=== PATIENT | male | born 1985 | race American Indian/Alaskan Native ===

== ENCOUNTER 2018-12-23 11:28 | Emergency (ER) | payer SELFPAY ==
[2018-12-23 12:17] VITALS: BP 146/82
--- NOTE | 2018-12-23 12:19 | Event Note ---
ED Screening Note Date of service: 12/23/18 Time: 12:15 ED Screening Note: This is a 33 y.o. M. that presents to the ER with chest pain for 2 days. Reports pain is worse when he cough or move RUE. Patient states he woke up with the pain morning. States his job is physical but he doesn't recall injury during work. This initial assessment/diagnostic orders/clinical plan/treatment(s) is/are subject to change based on patients health status, clinical progression and re- assessment by fellow clinical providers in the ED. Further treatment and workup at subsequent clinical providers discretion. Patient/guardian urged not to elope from the ED as their condition may be serious if not clinically assessed and managed. Initial orders include: CXR
--- NOTE | 2018-12-23 12:45 | XRay Report ---
CHEST 2 VIEWS INDICATION / CLINICAL INFORMATION: chest pain. COMPARISON: None available. FINDINGS: SUPPORT DEVICES: None. HEART / MEDIASTINUM: No significant abnormality. LUNGS / PLEURA: No significant pulmonary or pleural abnormality. No pneumothorax. ADDITIONAL FINDINGS: No significant additional findings. IMPRESSION: 1. No acute findings. Signer Name: Ki Schultz MD Signed: 12/23/2018 12:41 PM Workstation Name: [id number]
[2018-12-23] MEDS ORDERED: ACETAMINOPHEN 325 MG TAB PO ONE (13:35)
[2018-12-23] MEDS ORDERED: IBUPROFEN 600 MG TAB PO ONE (13:35)
[2018-12-23] MEDS ORDERED: SUCRALFATE 1 GM/10 ML ORAL LIQD PO ONE (13:35)
[2018-12-23] MEDS ORDERED: FAMOTIDINE 20 MG TAB PO ONE (13:35)
--- NOTE | 2018-12-23 13:36 | Emergency Department Report ---
ED General Adult HPI - General Chief complaint: Upper Respiratory Infection Stated complaint: CHEST PAIN/COUGHING Time Seen by Provider: 12/23/18 12:14 Source: patient, RN notes reviewed Mode of arrival: Ambulatory Limitations: No Limitations - History of Present Illness Initial comments: This is a 33-year-old gentleman, right-hand dominant, not known to this provider previously. He reports no chronic medical conditions. He denies DVT and pulmonary embolism risk factors. He presents to the emergency room with a few days of right-sided chest pain. The pain is constant and does not radiate anywhere. There is positive cough. There is no vomiting, diaphoresis or exertional shortness of breath. He believes he got worse after he started doing heavy lifting at work. He denies DVT and pulmonary embolism risk factors. There is no recent aspirin consumption. -: Gradual, days(s) Location: chest Consistency: constant Improves with: none Worsens with: none Associated Symptoms: denies other symptoms, cough - Related Data Allergies Allergy/AdvReac Type Severity Reaction Status Date / Time No Known Allergies Allergy Unverified 12/23/18 11:30 ED Review of Systems ROS: Stated complaint: CHEST PAIN/COUGHING Other details as noted in HPI Constitutional: denies: fever Eyes: denies: eye discharge ENT: congestion Respiratory: cough Cardiovascular: chest pain Gastrointestinal: denies: abdominal pain, nausea, vomiting Genitourinary: as per HPI Musculoskeletal: as per HPI Skin: as per HPI Neurological: as per HPI Psychiatric: as per HPI Hematological/Lymphatic: as per HPI ED Past Medical Hx - Past Medical History Previous Medical History?: No - Surgical History Past Surgical History?: No - Social History Smoking Status: Never Smoker Substance Use Type: Alcohol, Marijuana ED Physical Exam - General Limitations: No Limitations General appearance: alert, in no apparent distress - Head Head exam: Present: atraumatic, normocephalic - Eye Eye exam: Present: normal appearance, EOMI. Absent: nystagmus - ENT ENT exam: Present: normal exam, normal orophraynx, mucous membranes moist, normal external ear exam - Neck Neck exam: Present: normal inspection, full ROM. Absent: tenderness, men ingismus - Respiratory Respiratory exam: Present: normal lung sounds bilaterally. Absent: respiratory distress, wheezes, rales, rhonchi, stridor, chest wall tenderness, accessory muscle use, decreased breath sounds, prolonged expiratory - Cardiovascular Cardiovascular Exam: Present: regular rate, normal rhythm, normal heart sounds. Absent: bradycardia, tachycardia, irregular rhythm, systolic murmur, diastolic murmur, rubs, gallop - GI/Abdominal GI/Abdominal exam: Present: soft. Absent: distended, tenderness, guarding, rebound, rigid, pulsatile mass - Rectal Rectal exam: Present: deferred - Extremities Exam Extremities exam: Present: normal inspection, full ROM, other (2+ pulses noted in the bilateral upper, lower extremities. There is no long bone tenderness. Musculoskeletal compartments are soft. The pelvis is stable.). Absent: pedal edema, joint swelling, calf tenderness - Back Exam Back exam: Present: normal inspection, full ROM. Absent: tenderness, CVA tenderness (R), CVA tenderness (L), paraspinal tenderness, vertebral tenderness - Neurological Exam Neurological exam: Present: alert, oriented X3, normal gait, other (there is no facial droop. The tongue is midline. Extraocular movements are intact bilaterally. Patient speaking in full complete sentences. Shoulder shrug is intact bilaterally. Hearing is grossly intact bilaterally. Visual acuity intact to finger counting and color perception at a close distance. 5/5 strength 4 extremities. Sensation intact to light touch in 4 extremities.). Absent: motor sensory deficit - Psychiatric Psychiatric exam: Present: normal affect, normal mood - Skin Skin exam: Present: warm, dry, intact, normal color. Absent: rash ED Course Vital Signs 12/23/18 12:14 Temperature 98.9 F Pulse Rate 72 Respiratory 20 Rate Blood Pressure 146/82 O2 Sat by Pulse 99 Oximetry ED Medical Decision Making - Lab Data Vital Signs 12/23/18 12:14 Temperature 98.9 F Pulse Rate 72 Respiratory 20 Rate Blood Pressure 146/82 O2 Sat by Pulse 99 Oximetry Lab Results 12/23/18 Range/Units 13:40 Total Creatine Kinase 668 H (55-170) units/L Troponin T < 0.010 (0.00-0.029) ng/mL Lipase 30 (13-60) units/L - EKG Data -: EKG Interpreted by Mi EKG shows normal: sinus rhythm, axis, intervals, QRS complexes, ST-T waves - EKG Data When compared to previous EKG there are: previous EKG unavailable Interpretation: normal EKG - Radiology Data Radiology results: pending, report reviewed, image reviewed X-ray the chest is negative for acute disease - Medical Decision Making Differential diagnosis, including not limited to: Costochondritis, GERD, gastritis, pericarditis, pneumonia, hiatal hernia Assessment and plan: 33-year-old gentleman with complaint of a few days of right-sided chest pain. The patient is afebrile with reassuring vital signs. He is not tachycardic, tachypneic or hypoxic, he endorses no pulmonary embolism or DVT risk factors, and is low risk by well's criteria, and he is also perc negative Patient at low risk for major adverse cardiac event as per the heart score. No recent aspirin consumption. Patient resting comfortably in stretcher, 4 hours, without clinical decompensation. He does not appear to have an emergent medical condition at this time. His symptoms were treated. Patient may follow-up with an outpatient primary care doctor. Critical care attestation.: If time is entered above; I have spent that time in minutes in the direct care of this critically ill patient, excluding procedure time. ED Disposition Clinical Impression: Right-sided chest pain Disposition: DC-01 TO HOME OR SELFCARE Is pt being admited?: No Does the pt Need Aspirin: No Condition: Stable Additional Instructions: Drink 4-6 cups of water per day. Avoid consumption of heavy and/or spicy foods. Take the pain medications as needed and directed. Follow-up with a primary care doctor within the next 7-10 days. Return to emergency room right away with new, worsened, different symptoms, or symptoms not present on initial emergency room evaluation. Referrals: PRIMARY CARE [Primary Care Provider] - 3-5 Days [facility] [Provider Group] - 3-5 Days [facility] [Provider Group] - 3-5 Days
== END 2018-12-23 14:49 | disposition home or self-care (01) ==
LOC: ED 11:28
DX: R07.9 Chest pain, unspecified (principal); F12.10 Cannabis abuse, uncomplicated
CPT/HCPCS: 36415; 71046; 82550; 83690; 84484; 93005; 93010

== ENCOUNTER 2019-08-25 13:30 | Emergency (ER) | payer SELFPAY ==
[2019-08-25 13:39] VITALS: BP 127/73
--- NOTE | 2019-08-25 14:26 | Emergency Department Report ---
Chief Complaint: Back Pain/Injury Stated Complaint: BACK PAIN Time Seen by Provider: 08/25/19 14:16 - HPI History of Present Illness: 33-year-old -[place] male patient without significant past medical history presents with complaints of left lower back swelling times today and left lower back pain x 6 days. Patient states his pain started after he was exercising and lifting and he believes he pulled a muscle. Patient states he has been using ibuprofen and topical Biofreeze daily since. He states upon waking this morning, he noticed that his skin appears swollen. He denies any lesions, skin pain, fever/chills/sweats,loss of bladder/bowel control, numbn ess/tingling/weakness in his limbs, or difficulty with ambulation. - Exam Vital Signs: Vital Signs 08/25/19 13:36 Temperature 98.4 F Pulse Rate 100 H Respiratory 18 Rate Blood Pressure 127/73 O2 Sat by Pulse 99 Oximetry MSE screening note: Focused history and physical exam performed. Due to findings the following was ordered: ED Medical Decision Making - Medical Decision Making Patient here with complaints of left lower back pain after heavy lifting 6 days ago. Patient also states that the area began to swell this morning and that is why he presents to the ED today. On exam, skin is slightly swollen and very minimally erythemic without warmth or tenderness. No spinal or paraspinal tenderness noted on exam. No left CVA tenderness or abdominal tenderness noted and patient denies any urinary symptoms. Suspect patient is having skin irrit ation due to overuse of Biofreeze. Patient informed to discontinue Biofreeze and use ibuprofen as needed for the pain with icing and stretching. Patient provided with [facility] information for follow-up. Also recommend patient use Benadryl for the swelling for 1 to 2 days. Vitals are normal and patient is well-appearing and stable for discharge home. Strict return precautions were discussed in great detail with patient who verbalized understanding. ED Disposition for MSE Clinical Impression: Skin irritation due to topical agent Low back strain Qualifiers: Encounter type: initial encounter Qualified Code(s): S39.012A - Strain of muscle, fascia and tendon of lower back, initial encounter Disposition: MED SCREENING EXAM-LEFT Is pt being admited?: No Condition: Stable Instructions: Low Back Strain (ED) Referrals: [facility] [Provider Group] - 3-5 Days ED Physical Exam - General Limitations: No Limitations General appearance: alert, in no apparent distress - Head Head exam: Present: atraumatic, normocephalic - Eye Eye exam: Present: normal appearance. Absent: scleral icterus - ENT ENT exam: Present: mucous membranes moist - Neck Neck exam: Present: normal inspection - Respiratory Respiratory exam: Present: normal lung sounds bilaterally. Absent: respiratory distress - Cardiovascular Cardiovascular Exam: Present: regular rate, normal rhythm. Absent: systolic murmur, diastolic murmur, rubs, gallop - GI/Abdominal GI/Abdominal exam: Present: soft, normal bowel sounds. Absent: distended, tenderness, guarding, rebound, rigid - Back Exam Back exam: Present: full ROM. Absent: CVA tenderness (L), paraspinal tenderness, vertebral tenderness - Neurological Exam Neurological exam: Present: alert, oriented X3, normal gait. Absent: motor sensory deficit - Expanded Neurological Exam Expanded Sensory exam: Upper Extremity Light Touch: Normal, Lower Extremity Light Touch: Normal Motor strength exam: RUE: 5, LUE: 5, RLE: 5, LLE: 5 - Psychiatric Psychiatric exam: Present: normal affect, normal mood - Skin Skin exam: Present: warm, dry, intact, erythema (minimal ertyema noted to left flank area with minimal skin swelling noted; no tenderness to palpation or warmth noted; no skin lesions; ). Absent: rash, petechiae, ecchymosis ED Review of Systems ROS: Stated complaint: BACK PAIN Other details as noted in HPI Constitutional: denies: chills, diaphoresis, fever, malaise, weakness Respiratory: denies: cough, shortness of breath Cardiovascular: denies: chest pain Gastrointestinal: denies: abdominal pain, nausea, vomiting Genitourinary: denies: urgency, dysuria, frequency, hematuria, discharge Musculoskeletal: back pain. denies: joint swelling Skin: change in color. denies: lesions, pruritus Neurological: denies: headache, weakness, numbness, paresthesias
== END 2019-08-25 15:00 | disposition left against medical advice (07) ==
LOC: ED 13:30
DX: M54.89 Other dorsalgia (principal); Z53.21 Procedure and treatment not carried out due to patient leaving prior to being seen by health care provider

== ENCOUNTER 2020-02-04 04:34 | Emergency (ER) | payer SELFPAY ==
[2020-02-04 04:43] VITALS: BP 152/96
[2020-02-04] MEDS ORDERED: methylPREDNISolone Sod Succinate 125 MG/2 ML INJ IM ONE (08:07)
--- NOTE | 2020-02-04 08:07 | Emergency Department Report ---
ED Back Pain/Injury HPI - General Chief Complaint: Pain General Stated Complaint: LF HIP PAIN S/P FALL Time Seen by Provider: 02/04/20 08:03 Source: patient Limitations: No Limitations - History of Present Illness Initial Comments: Patient has had ongoing issues with left-sided sciatica for a number of months, has seen chiropractors without significant improvement, recently had an MRI that confirmed a nerve compression but was otherwise negative. States that he is here hoping to get a steroid shot to help. Denies any fevers, trauma, numbness, weakness, bowel or bladder changes, IV drug use, history of cancer, long-term steroid use or other complaints. Pain worse with movement, better with rest, moderate in nature. Radiates down the left leg. - Related Data Previous Rx's Medication Instructions Recorded Last Taken Type Acetaminophen [Non-Aspirin Extra 500 mg PO Q6HR PRN #30 tablet 12/23/18 Unknown Rx Strength] Famotidine [Pepcid] 20 mg PO BID #10 tablet 12/23/18 Unknown Rx Ibuprofen [Motrin] 600 mg PO Q8H PRN #30 tablet 12/23/18 Unknown Rx predniSONE [Deltasone] 40 mg PO QDAY #10 tab 02/04/20 Unknown Rx Allergies Allergy/AdvReac Type Severity Reaction Status Date / Time No Known Allergies Allergy Unverified 12/23/18 11:30 ED Review of Systems ROS: Stated complaint: LF HIP PAIN S/P FALL Other details as noted in HPI Comment: All other systems reviewed and negative Musculoskeletal: as per HPI ED Back Pain Physical Exam - Exam General: Vital signs noted. No distress. Alert and acting appropriately. Back/Abdomen: Yes Sacroiliac Tenderness, Yes Straight Leg Raise Pain (Left-sided along with left sciatic notch tenderness), No Abdominal Tenderness, No Perithoracic Tenderness, No Perilumbar Tenderness, No Flank Tenderness Neuro: Yes Normal Sensation, Yes Normal DTR's, Yes Normal Gait, No Motor Weakness ED Course Vital Signs 02/04/20 04:41 Temperature 97.8 F Pulse Rate 99 H Respiratory 16 Rate Blood Pressure 152/96 [Left] O2 Sat by Pulse 97 Oximetry ED Medical Decision Making - Medical Decision Making Patient presents with sciatica, ongoing for a number of months. No red flag signs or symptoms to suggest cord compression/spinal epidural abscess and he recently had an MRI that only showed nerve compression peripherally. Positive straight leg raise on exam, no midline spinal pain or tenderness. Will give steroid injection and referred to orthopedics for follow-up. - Differential Diagnosis Sciatica, SI pain, lumbar strain Critical care attestation.: If time is entered above; I have spent that time in minutes in the direct care of this critically ill patient, excluding procedure time. ED Disposition Clinical Impression: Sciatica Qualifiers: Laterality: left Qualified Code(s): M54.32 - Sciatica, left side Disposition: TO HOME OR SELFCARE Is pt being admited?: No Condition: Good Instructions: Sciatica Rehab-SportsMed, Sciatica Prescriptions: predniSONE [Deltasone] 40 mg PO QDAY #10 tab Referrals: PRIMARY CARE, [Primary Care Provider] - 3-5 Days YVONNE BANSAL MD [Staff Physician] - 3-5 Days Time of Disposition: 08:06
== END 2020-02-04 08:23 | disposition home or self-care (01) ==
LOC: ED 04:34
DX: M54.32 Sciatica, left side (principal); Z79.899 Other long term (current) drug therapy
CPT/HCPCS: 96372; 99282; J2930